=== PATIENT | female | born 1995 | race Caucasian/White ===

== ENCOUNTER 2019-01-16 20:56 | Emergency (ER) | payer MEDICAID ==
[~2019-01-16] VITALS: Ht 160 cm; Wt 100.0 kg
[2019-01-17] MEDS ORDERED: IBUPROFEN 600MG TABLET PO ONE (00:45)
[2019-01-17 01:02] VITALS: BP 107/67
== END 2019-01-17 01:25 | disposition home or self-care (01) ==
LOC: ER 20:56
DX: S09.8XXA Other specified injuries of head, initial encounter (principal); R42 Dizziness and giddiness; W22.8XXA Striking against or struck by other objects, initial encounter; Y93.89 Activity, other specified; Y92.69 Other specified industrial and construction area as the place of occurrence of the external cause; Y99.8 Other external cause status
CPT/HCPCS: 99282

== ENCOUNTER 2023-04-13 21:04 | Emergency (ER) | payer MEDICAID ==
[~2023-04-13] VITALS: Ht 160 cm; Wt 113.0 kg
[2023-04-13 21:33] VITALS: O2SAT 98
[2023-04-13] MEDS ORDERED: KETOROLAC 30MG/ML VIAL IM ONE (21:45)
[2023-04-13] MEDS ORDERED: ONDANSETRON 4MG ODT PO ONE (21:45)
[2023-04-13] MEDS ORDERED: MECL-217 MT (22:25)
[2023-04-13] MEDS ORDERED: ASPI1TAB8 PO (22:25)
[2023-04-13 22:33] VITALS: BP 134/80
[2023-04-13 23:01] VITALS: PULSE 65; RESP 18
== END 2023-04-13 23:02 | disposition home or self-care (01) ==
LOC: ER 21:15
DX: G43.909 Migraine, unspecified, not intractable, without status migrainosus (principal); R11.0 Nausea; R42 Dizziness and giddiness; G44.89 Other headache syndrome
CPT/HCPCS: 81025; 96372; 99283; Q0162; J1885; Z7610